=== PATIENT | female | born 1945 | race Caucasian/White ===

== ENCOUNTER → 2017-08-12 | Outpatient (CLI) | payer MEDICARE, BC ==
[~2017-08-12] MED LIST: CLARITIN PO; GABAPENTIN PO; HCTZ PO; LEVOXYL0.05 MG PO; LEVOXYL0.1 MG PO; MACROBID 1100 MG/CAP PO; NEURONTIN800 MG/TAB PO; PRILOSEC 20MG20 MG PO; PRILOSEC20 MG PO; TETRACYCLINE 2250 MG PO; XANAX0.25 MG PO; ZOCOR 10MG10 MG PO; ZOCOR PO; [UNRECOGNIZED DRUG - OTHER] PO
== END ==
LOC: MC.RAD 09:19
DX: Z12.31 Encounter for screening mammogram for malignant neoplasm of breast (principal); Z85.3 Personal history of malignant neoplasm of breast; Z90.13 Acquired absence of bilateral breasts and nipples

== ENCOUNTER 2018-02-16 18:40 | Emergency (ER) | payer MEDICARE, BC ==
[~2018-02-16] VITALS: Ht 167.6 cm; Wt 80.9 kg
[2018-02-16 18:44] VITALS: BP 199/88; PULSE 69; TEMP 98.3
[2018-02-16] MEDS ORDERED: KLOR-CON M1010 MEQ PO (19:55)
[2018-02-16] MEDS ORDERED: B-121000 MCG PO (19:56)
[2018-02-16] MEDS ORDERED: THERATEARS SGL PO (19:56)
[2018-02-16] MEDS ORDERED: CRANBERRY500 M3 PO (19:56)
== END 2018-02-16 19:59 | disposition home or self-care (01) ==
LOC: COL.ER 18:40
DX: S81.012A Laceration without foreign body, left knee, initial encounter (principal); Z85.3 Personal history of malignant neoplasm of breast; W22.8XXA Striking against or struck by other objects, initial encounter; W18.39XA Other fall on same level, initial encounter

== ENCOUNTER → 2018-09-09 | Outpatient (CLI) | payer MEDICARE, BC ==
[~2018-09-09] MED LIST changes: +B-121000 MCG PO; +CRANBERRY500 M3 PO; +KLOR-CON M1010 MEQ PO; +THERATEARS SGL PO
== END ==
LOC: MC.RAD 11:40
DX: Z12.31 Encounter for screening mammogram for malignant neoplasm of breast (principal); Z85.3 Personal history of malignant neoplasm of breast

== ENCOUNTER → 2019-09-11 | Outpatient (CLI) | payer MEDICARE, BC | LOC: MC.RAD 09:11 | DX: Z12.31 Encounter for screening mammogram for malignant neoplasm of breast (principal) ==

== ENCOUNTER → 2020-10-07 | Outpatient (CLI) | payer MEDICARE, BC | LOC: MC.RAD 09-26 10:00 | DX: Z12.31 Encounter for screening mammogram for malignant neoplasm of breast (principal); Z98.890 Other specified postprocedural states; Z98.82 Breast implant status; Z85.3 Personal history of malignant neoplasm of breast ==

== ENCOUNTER → 2021-10-10 | Outpatient (CLI) | payer MEDICARE, BC ==
[~2021-10-10] MED LIST changes: +NORVASC 5MG5 MG/TAB PO
== END ==
LOC: MC.RAD 13:00
DX: Z12.31 Encounter for screening mammogram for malignant neoplasm of breast (principal); Z85.3 Personal history of malignant neoplasm of breast

== ENCOUNTER 2021-10-11 13:04 | Emergency (ER) | payer MEDICARE, BC ==
[~2021-10-11] VITALS: Ht 165.1 cm; Wt 70.5 kg
[~2021-10-11 13:04] MED LIST changes: -NORVASC 5MG5 MG/TAB PO
[2021-10-11 13:17] VITALS: TEMP 97.6
[2021-10-11 13:35] LABS: BASO # 0.1 K/mm3 (0.0-0.2); BASO % 0.7 % (0.0-2.0); EOS # 0.1 K/mm3 (0.0-0.7); EOS % 1.4 % (0-4.0); GRAN # 3.5 K/mm3 (1.4-6.5); GRAN % 49.8 % (42.2-75.2); HEMATOCRIT 47.7 % (37.0-47.0); HEMOGLOBIN 16.7 g/dl (12.5-16.0); LYMPH # 2.8 K/mm3 (1.2-3.4); LYMPH % 38.8 % (20.0-51.0); MEAN CELL VOLUME 87 fl (80.0-100.0); MEAN CORPUSCULAR HEMOGLOBIN 31 pg (27.0-31.0); MEAN CORPUSCULAR HGB CONC 35 g/dl (33.0-37.0); MEAN PLATELET VOLUME 11.3 fl (7.4-10.4); MONO # 0.7 K/mm3 (0.1-0.6); MONO % 9.2 % (1.7-9.3); PLATELET COUNT 160 K/mm3 (130-400); RED BLOOD COUNT 5.47 M/mm3 (4.10-5.30); REDCELL DISTRIBUTION WIDTH-CV 12.8 % (11.5-14.5)
[2021-10-11 13:53] LABS: ALANINE AMINOTRANSFERASE 16 U/L (0-55); ALBUMIN 4.6 gm/dL (3.4-4.8); ALKALINE PHOSPHATASE 101 U/L (40-150); ANION GAP 14 mmol/L (7-16); AST,SGOT 29 U/L (5-34); BILIRUBIN,TOTAL 0.9 mg/dL (0.2-1.2); BLOOD UREA NITROGEN 16 mg/dL (10-20); CALCIUM 10.5 mg/dL (8.4-10.2); CARBON DIOXIDE 24 mmol/L (23-31); CHLORIDE 106 mmol/L (98-107); CREATININE, serum 0.67 mg/dL (0.57-1.11); GLUCOSE 101 mg/dL (70-99); POTASSIUM 4.4 mmol/L (3.5-4.5); SODIUM 144 mmol/L (136-145); TOTAL PROTEIN 8.1 gm/dL (6.2-8.1)
[2021-10-11 13:59] LABS: TROPONIN-I < 0.010 ng/mL (0.00-0.033)
[2021-10-11] MEDS ORDERED: NORVASC 5MG5 MG/TAB PO (14:39)
[2021-10-11 14:50] VITALS: BP 135/76; PULSE 86
== END 2021-10-11 14:50 | disposition home or self-care (01) ==
LOC: COL.ER 13:04
PROVIDERS: Personal Emergency Response Attendant
DX: I10 Essential (primary) hypertension (principal)
CPT/HCPCS: J0360

== ENCOUNTER 2024-01-21 10:45 | Emergency (ER) | payer MEDICARE, BC ==
[~2024-01-21] VITALS: Ht 165.1 cm; Wt 71.8 kg
[~2024-01-21 10:45] MED LIST changes: +NORVASC 5MG5 MG/TAB PO
[2024-01-21 10:55] VITALS: TEMP 97.7
[2024-01-21 12:11] LABS: BASO % 0.6 % (0.0-2.0); EOS # 0.1 K/mm3 (0.0-0.7); GRAN # 3.1 K/mm3 (1.4-6.5); GRAN % 49.7 % (42.2-75.2); HEMATOCRIT 41.6 % (37.0-47.0); HEMOGLOBIN 14.6 g/dl (12.5-16.0); LYMPH # 2.5 K/mm3 (1.2-3.4); LYMPH % 40.4 % (20.0-51.0); MEAN CELL VOLUME 87 fl (80.0-100.0); MEAN CORPUSCULAR HEMOGLOBIN 30 pg (27-31); MEAN CORPUSCULAR HGB CONC 35 g/dl (33.0-37.0); MONO # 0.5 K/mm3 (0.1-0.6); PLATELET COUNT 135 K/mm3 (130-400); RED BLOOD COUNT 4.81 M/mm3 (4.10-5.30); REDCELL DISTRIBUTION WIDTH-CV 12.9 % (11.5-14.5)
[2024-01-21] MEDS ORDERED: cloNIDine 0.1 MG TAB PO ONE (12:15)
[2024-01-21 12:24] LABS: ALBUMIN 4.4 gm/dL (3.4-4.8); BILIRUBIN,TOTAL 0.7 mg/dL (0.2-1.2); CALCIUM 10.7 mg/dL (8.4-10.2); CREATININE, serum 0.68 mg/dL (0.57-1.11); POTASSIUM 3.7 mmol/L (3.5-4.5); TOTAL PROTEIN 7.4 gm/dL (6.2-8.1)
[2024-01-21 13:08] VITALS: BP 146/68; PULSE 82
== END 2024-01-21 14:37 | disposition home or self-care (01) ==
LOC: COL.ER 10:45
PROVIDERS: Family Medicine
DX: I10 Essential (primary) hypertension (principal); Z79.899 Other long term (current) drug therapy